=== PATIENT | male | born 2000 | race Caucasian/White ===

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

== ENCOUNTER 2022-02-23 10:12 | Emergency (ER) | payer OTHER ==
[~2022-02-23] VITALS: Ht 170.2 cm; Wt 49.4 kg
[2022-02-23] MEDS ORDERED: PEPCID AC20 MG PO (13:54)
[2022-02-23] MEDS ORDERED: ZYRTEC10 MG PO (13:54)
[2022-02-23] MEDS ORDERED: OSELTAMIVIR PHO75 MG PO (13:54)
[2022-02-23] MEDS ORDERED: TUSSI-PRES PED480 ML PO (13:54)
== END 2022-02-23 14:16 | disposition home or self-care (01) ==
LOC: EMR PED 10:12
DX: U07.1 COVID-19 (principal); R05.9 Cough, unspecified

== ENCOUNTER 2024-03-02 12:26 | Inpatient (IN) | payer OTHER ==
[~2024-03-02] VITALS: Ht 170.2 cm; Wt 53.1 kg
[~2024-03-02 12:26] MED LIST: OSELTAMIVIR PHO75 MG PO; PEPCID AC20 MG PO; TUSSI-PRES PED480 ML PO; ZYRTEC10 MG PO
--- NOTE | 2024-03-02 13:13 | NUR ---
PTE RFIEFE DOLOR PUNSANTE Y INTERMITENTE EN EL CUADRANTE DERCHO DESDE LAS 1 AM SE LE JORGE S/V Y SE UBICA EN ETHAN .
[2024-03-02] MEDS ORDERED: RINGERS SOLUTION,LACTATED 1,000 ML IV STA (13:51)
[2024-03-02] MEDS ORDERED: MEPERIDINE HCL 25 MG/ML AMPUL IV STA (13:52)
[2024-03-02] MEDS ORDERED: PIPERACILLIN/TAZOBACTAM SODIUM 3.375 GM VIAL IV ONE (15:15)
--- NOTE | 2024-03-02 15:58 | NUR ---
PACIENTE ALERTA Y ORIENTADO X3. SE EDUCA SOBRE ADMINISTRACION DE MEDICAMENTOS, CANALIZACION Y JORGE DE MUESTRAS, REFIERE ENTENDER. SE EJECUTAN ORDENES BAJO MEDIDAS ASEPTICAS. PENDIENTE A CONSULTA CON DR. GRACE DE MEDICINA INTERNA.
[2024-03-02 16:02] LABS: HEMATOCRIT 40.2 % (39.0-48.0); HEMOGLOBIN 13.7 g/dL (13-16.00); MEAN CELL VOLUME 89.6 fL (80.0-100.00); MEAN CORPUSCULAR HEMOGLOBIN 30.6 pg (27.00-32.0); MEAN CORPUSCULAR HGB CONC 34.2 g/dl (32.0-36.0); PLATELET COUNT 197 K/uL (150-450); RED BLOOD COUNT 4.48 M/uL (4.00-6.00); RED CELL DISTRIBUTION WIDTH 12.9 % (11.5-14.5)
[2024-03-02 16:26] LABS: CALCIUM 9.7 mg/dL (8.5-10.1); CREATININE SERUM 0.87 mg/dL (0.70-1.30); GFR 110.77; POTASSIUM 4.25 mEq/L (3.5-5.1)
[2024-03-02] MEDS ORDERED: 0.9 % SODIUM CHLORIDE 1,000 ML IV SCH ×2 (16:45→23:15)
[2024-03-02] MEDS ORDERED: MORPHINE SULFATE 4 MG/ML CARTRIDGE IV PRN (17:00)
[2024-03-02] MEDS ORDERED: ACETAMINOPHEN 500 MG GEL..CAP PO PRN (17:00)
[2024-03-02] MEDS ORDERED: ONDANSETRON HCL 4 MG in 0.9 % SODIUM CHLORIDE 50 ML IV PRN (17:00)
[2024-03-02 17:57] LABS: INR 1.07; PARTIAL THROMBOPLASTIN TIME 28.2 SECONDS (22.0-34.0); PROTHROMBIN TIME 11.6 SECONDS (9.0-11.5)
[2024-03-02] MEDS ORDERED: PIPERACILLIN/TAZOBACTAM SODIUM 3.375 GM in DEXTROSE 5 % IN WATER 100 ML IV SCH (18:00)
[2024-03-02] MEDS ORDERED: BUPIVACAINE HCL/MPF 0.5% 30ML VIAL ONE (19:08)
[2024-03-02] MEDS ORDERED: ONDANSETRON HCL 2 MG/ML VIAL IV PRN (20:30)
[2024-03-02] MEDS ORDERED: KETOROLAC TROMETHAMINE 30 MG VIAL IV PRN (20:30)
[2024-03-02] MEDS ORDERED: MORPHINE SULFATE 4 MG/ML VIAL IV ONE ×2 (22:15→23:10)
[2024-03-03] MEDS ORDERED: KETOROLAC TROMETHAMINE 30 MG VIAL ONE (00:35)
[2024-03-03 01:36] VITALS: BP 109/58; O2SAT 100
[2024-03-03 02:38] LABS: URINE APPEARANCE Clear; URINE BILIRRUBIN Negative (NEGATIVE); URINE BLOOD Negative; URINE COLOR Yellow; URINE GLUCOSE Negative (NEGATIVE); URINE KETONE 15 (NEGATIVE); URINE LEUKOCYTE Negative; URINE NITRATE Negative; URINE PROTEIN Negative (NEGATIVE); URINE UROBILINOGEN 0.2 E.U./dl
[2024-03-03 02:41] LABS: URINE BACTERIA 2.4 uL (0.0-1933); URINE EPITHELIAL CELLS 0.7 uL (0.0-38.8); URINE WBC 0.7 uL (0.0-23.2)
[2024-03-03 07:31] LABS: CALCIUM 9.5 mg/dL (8.5-10.1); CREATININE SERUM 0.95 mg/dL (0.70-1.30); GFR 100.08; POTASSIUM 4.08 mEq/L (3.5-5.1)
[2024-03-03 07:46] LABS: HEMATOCRIT 39.1 % (39.0-48.0); HEMOGLOBIN 13.6 g/dL (13-16.00); MEAN CELL VOLUME 89.7 fL (80.0-100.00); MEAN CORPUSCULAR HEMOGLOBIN 31.1 pg (27.00-32.0); MEAN CORPUSCULAR HGB CONC 34.7 g/dl (32.0-36.0); PLATELET COUNT 183 K/uL (150-450); RED BLOOD COUNT 4.36 M/uL (4.00-6.00); RED CELL DISTRIBUTION WIDTH 12.9 % (11.5-14.5)
[2024-03-03 08:00] VITALS: BP 98/63; O2SAT 99
[2024-03-03] MEDS ORDERED: FAMOTIDINE/PF 20 MG in 0.9 % SODIUM CHLORIDE 8 ML IV PUSH SCH (09:00)
[2024-03-03] MEDS ORDERED: AMOX-CLAV 875-1 EACH PO (12:50)
== END 2024-03-03 14:56 | disposition home or self-care (01) | DRG 399 ==
LOC: ER 12:28 → SURH 16:55
PROVIDERS: General Practice; Surgery; ADMIT Internal Medicine; ATTEND Internal Medicine
PROC: 0WQF4ZZ Repair Abdominal Wall, Percutaneous Endoscopic Approach (ICD-10-PCS; 2024-03-02)
PROC: BW21ZZZ Computerized Tomography (CT Scan) of Abdomen and Pelvis (ICD-10-PCS; 2024-03-02)
PROC: 0DTJ4ZZ Resection of Appendix, Percutaneous Endoscopic Approach (ICD-10-PCS; principal; 2024-03-02 18:15)
DX: K35.890 Other acute appendicitis without perforation or gangrene (principal); K43.9 Ventral hernia without obstruction or gangrene; Z20.822 Contact with and (suspected) exposure to COVID-19